=== PATIENT | male | born 1970 | race Caucasian/White ===

== ENCOUNTER 2019-04-24 12:06 | Emergency (ER) | payer BC ==
--- OUTSIDE RECORDS SUMMARY | 2019-04-24 12:09 | XMS REPORT ---
:1970 [facility] Address [address] [place] [address] Care Team Providers Name Role Phone DR KEYLA BATES Unavailable Unavailable SAMANTHA LOERA V Unavailable Unavailable Payers Payer Name Policy Type Policy Number Effective Date Expiration Date Problems This patient has no known problems. Allergies, Adverse Reactions, Alerts Allergy Allergy Status Severity Reaction(s) Onset Inactive Treating Comments Name Type Date Date Clinician No Known DA Active U 2018-02 00:00:0 0 Medications This patient has no known medications. Encounters Start End Encounter Admission Attending Care Care Encounter Date/Time Date/Time Type Type Clinicians Facility Department ID 2018-03-30 Inpatient Deuce BATES [facility] [id number] 10:33:00 KEYLA 2018-07-29 2018-07-29 Outpatient Deuce BATES [facility] [id number] 07:14:00 09:40:00 KEYLA 2018-05-27 2018-05-27 Outpatient Deuce BATES [facility] [id number] 07:55:00 09:40:00 KEYLA 2017-12-24 2017-12-24 Outpatient Deuce BATES [facility] [id number] 08:15:00 10:10:00 KEYLA 2017-11-05 2017-11-05 Outpatient Deuce BATES [facility] [id number] 08:19:00 10:25:00 KEYLA 2017-01-28 2017-01-28 Outpatient Deuce BATES [facility] [id number] 13:58:00 13:58:00 KEYLA 2015-01-06 2015-01-06 Outpatient Deuce LOERA [facility] [id number] 08:01:00 10:25:00 SAMANTHA
--- NOTE | 2019-04-24 13:06 | ER ---
Nurse's Notes [facility] Name: Sage Valadez Age: 48 yrs Sex: Male : 1970 Arrival Date: 04/24/2019 Time: 12:08 Bed 26 Private MD: Diagnosis: Acute pharyngitis Presentation: 04/24 12:22 Presenting complaint: Sore throat, body aches, and malaise x 2 days. Transition of hb care: patient was not received from another setting of care. Onset of symptoms was April 23, 2019. Risk Assessment: Do you want to hurt yourself or someone else? Patient reports no desire to harm self or others. Initial Sepsis Screen: Does the patient meet any 2 criteria? No. Patient's initial sepsis screen is negative. Does the patient have a suspected source of infection? No. Patient's initial sepsis screen is negative. Care prior to arrival: None. 12:22 Method Of Arrival: Ambulatory hb 12:22 Acuity: LEIA 4 hb Historical: - PMHx: 12:23 ulcerative colitis; hb - PSHx: 12:23 bicep and tendon repair R arm; hb - Immunization history:: Adult Immunizations up to date. - Social history:: Smoking status: Patient/guardian denies using tobacco. - Ebola Screening: : No symptoms or risks identified at this time. Screenin:47 Abuse screen: Denies threats or abuse. Denies injuries from another. Nutritional mg2 screening: No deficits noted. Tuberculosis screening: No symptoms or risk factors identified. Fall Risk None identified. Assessment: 12:47 General: Appears in no apparent distress. comfortable, Behavior is calm, cooperative. mg2 Pain: Complains of pain in thraot and head. Neuro: Level of Consciousness is awake, alert, obeys commands. Cardiovascular: Capillary refill < 3 seconds Patient's skin is warm and dry. Respiratory: Airway is patent Respiratory effort is even, unlabored, Breath sounds are clear bilaterally. in mediastinum, right upper lobe, left upper lobe, right middle lobe, left lower lobe and right lower lobe. GI: No signs and/or symptoms were reported involving the gastrointestinal system. : No signs and/or symptoms were reported regarding the genitourinary system. EENT: Throat. EENT: Reports sore throat. Derm: Skin is intact, is healthy with good turgor, Skin is pink, warm \T\ dry. normal. Musculoskeletal: Circulation, motion, and sensation intact. Capillary refill < 3 seconds. Vital Signs: 12:21 BP 146 / 94; Pulse 79; Resp 16; Temp 98.8; Pulse Ox 100% on R/A; Weight 90.72 kg; hb Height 5 ft. 11 in. (180.34 cm); Pain 6/10; 13:11 BP 130 / 78; Pulse 80; Resp 18; Temp 98.7; Pulse Ox 100% on R/A; mg2 12:21 Body Mass Index 27.89 (90.72 kg, 180.34 cm) hb ED Course: 12:08 Patient arrived in ED. as 12:21 Arm band placed on. hb 12:22 Triage completed. 12:28 Johanna Haney FNP [facility]. hi 12:28 Rolo Varela MD is Attending Physician. hi 12:45 Sebastian Lunsford, ZA is Primary Nurse. mg2 12:47 No provider procedures requiring assistance completed. Patient did not have IV access mg2 during this emergency room visit. 12:49 Patient has correct armband on for positive identification. mg2 Administered Medications: No medications were administered Outcome: 13:05 Discharge ordered by MD. nh 13:11 Discharged to home ambulatory. mg2 13:11 Condition: stable 13:11 Discharge instructions given to patient, Instructed on discharge instructions, follow up and referral plans. medication usage, Demonstrated understanding of instructions, follow-up care, medications, Prescriptions given X 1. 13:12 Patient left the ED. mg2 Signatures: Johanna Haney FNP DEVELOPER ARCHITECT hi Albertina Kaplan Heather, RN RN Sebastian Lunsford, ZA RN mg2
--- NOTE | 2019-04-24 13:06 | EDPHYS ---
Physician Documentation [facility] Name: Sage Valadez Age: 48 yrs Sex: Male : 1970 Arrival Date: 04/24/2019 Time: 12:08 Bed 26 Private MD: ED Physician Rolo Varela HPI: 04/24 12:57 This 48 yrs old Male presents to ER via Ambulatory with complaints of Sore nh Throat, Headache, InQuicker. 12:57 The patient presents with sore throat. The patient describes throat pain as burning, nh constant. Onset: The symptoms/episode began/occurred acutely, 3 day(s) ago. Severity of symptoms: At their worst the symptoms were moderate, just prior to arrival, in the emergency department the symptoms are unchanged. Associated signs and symptoms: Pertinent positives: Sore throat. The patient has not experienced similar symptoms in the past. The patient has not recently seen a physician. Historical: - PMHx: 12:23 ulcerative colitis; hb - PSHx: 12:23 bicep and tendon repair R arm; hb - Immunization history:: Adult Immunizations up to date. - Social history:: Smoking status: Patient/guardian denies using tobacco. - Ebola Screening: : No symptoms or risks identified at this time. ROS: 12:57 Constitutional: Negative for fever, chills, and weight loss, Eyes: Negative for injury, nh pain, redness, and discharge, Neck: Negative for injury, pain, and swelling, Cardiovascular: Negative for chest pain, palpitations, and edema, Respiratory: Negative for shortness of breath, cough, wheezing, and pleuritic chest pain, Abdomen/GI: Negative for abdominal pain, nausea, vomiting, diarrhea, and constipation, Back: Negative for injury and pain, : Negative for injury, bleeding, discharge, and swelling, MS/Extremity: Negative for injury and deformity, Skin: Negative for injury, rash, and discoloration, Neuro: Negative for headache, weakness, numbness, tingling, and seizure, Psych: Negative for depression, anxiety, suicide ideation, homicidal ideation, and hallucinations. 12:57 ENT: Positive for sore throat, Negative for injury or acute deformity, drainage from ear(s), ear pain, foreign body sensation, Gum pain hearing loss, pulling at ears, Teeth pain tinnitus, nasal discharge, rhinorrhea, sinus congestion, sinus pain, dental pain, difficulty swallowing, difficulty handling secretions, hoarseness. Exam: 12:57 Constitutional: This is a well developed, well nourished patient who is awake, alert, nh and in no acute distress. Head/Face: Normocephalic, atraumatic. Eyes: Pupils equal round and reactive to light, extra-ocular motions intact. Lids and lashes normal. Conjunctiva and sclera are non-icteric and not injected. Cornea within normal limits. Periorbital areas with no swelling, redness, or edema. Neck: Trachea midline, no thyromegaly or masses palpated, and no cervical lymphadenopathy. Supple, full range of motion without nuchal rigidity, or vertebral point tenderness. No Meningismus. Chest/axilla: Normal chest wall appearance and motion. Nontender with no deformity. No lesions are appreciated. Cardiovascular: Regular rate and rhythm with a normal S1 and S2. No gallops, murmurs, or rubs. Normal PMI, no JVD. No pulse deficits. Respiratory: Lungs have equal breath sounds bilaterally, clear to auscultation and percussion. No rales, rhonchi or wheezes noted. No increased work of breathing, no retractions or nasal flaring. Abdomen/GI: Soft, non-tender, with normal bowel sounds. No distension or tympany. No guarding or rebound. No evidence of tenderness throughout. Back: No spinal tenderness. No costovertebral tenderness. Full range of motion. Skin: Warm, dry with normal turgor. Normal color with no rashes, no lesions, and no evidence of cellulitis. 12:57 ENT: External ear(s): are unremarkable, Ear canal(s): are normal, TM's: are normal, Nose: is normal, Mouth: is normal, Posterior pharynx: Tonsils: bilaterally enlarged, with erythema, with exudate, Uvula: normal, midline, peritonsillar mass, is not appreciated, Dental exam: normal, Voice: is normal. Vital Signs: 12:21 BP 146 / 94; Pulse 79; Resp 16; Temp 98.8; Pulse Ox 100% on R/A; Weight 90.72 kg; hb Height 5 ft. 11 in. (180.34 cm); Pain 6/10; 13:11 BP 130 / 78; Pulse 80; Resp 18; Temp 98.7; Pulse Ox 100% on R/A; mg2 12:21 Body Mass Index 27.89 (90.72 kg, 180.34 cm) MDM: 12:28 Patient medically screened. wy 13:04 Data reviewed: vital signs, nurses notes, lab test result(s), I have discussed the wy patient's presentation/case with the attending Emergency Department Physician; and as a result, I will discharge patient. Counseling: I had a detailed discussion with the patient and/or guardian regarding: the historical points, exam findings, and any diagnostic results supporting the discharge/admit diagnosis, lab results, the need for outpatient follow up, to return to the emergency department if symptoms worsen or persist or if there are any questions or concerns that arise at home. 04/24 12:19 Order name: Flu; Complete Time: 13:04 04/24 12:19 Order name: Strep; Complete Time: 13: 04/24 13:03 Order name: Throat Culture EDMS Administered Medications: No medications were administered Disposition: 13:36 Co-signature as Attending Physician, Rolo Varela MD. rn Disposition: 04/24/19 13:05 Discharged to Home. Impression: Acute pharyngitis. - Condition is Stable. - Discharge Instructions: Pharyngitis. - Prescriptions for Zithromax Z- Wander 250 mg Oral Tablet - take 1 tablet by ORAL route as directed for 5 days Day 1 - take two (2) tablets one time. Day 2, 3, 4 , 5 take one (1) tablet once daily.; 6 tablet. - Medication Reconciliation Form, Thank You Letter, Antibiotic Education, Prescription Opioid Use form. - Follow up: Private Physician; When: 2 - 3 days; Reason: Recheck today's complaints. - Problem is new. - Symptoms are unchanged. Signatures: Dispatcher [employer] EDMS Johanna Haney, HAIRPIECE STYLIST HAIRPIECE STYLIST wy Rolo Varela MD MD rn Baxter, Heather, RN RN Sebastian Lunsford RN RN mg2 Corrections: (The following items were deleted from the chart) 13:12 13:05 04/24/2019 13:05 Discharged to Home. Impression: Acute pharyngitis. Condition is mg2 Stable. Forms are Medication Reconciliation Form, Thank You Letter, Antibiotic Education, Prescription Opioid Use. Follow up: Private Physician; When: 2 - 3 days; Reason: Recheck today's complaints. Problem is new. Symptoms are unchanged. nh
[2019-04-24 15:14] VITALS: O2SAT 100
[2019-04-24 15:16] VITALS: BP 130/78; TEMP 98.7
== END 2019-04-24 13:12 | disposition home or self-care (01) ==
LOC: ER 12:06
DX: J02.9 Acute pharyngitis, unspecified (principal)
CPT/HCPCS: 87070; 87081; 87804; 99282